=== PATIENT | male | born 1945 | race Caucasian/White ===

== ENCOUNTER 2017-01-30 12:09 | Day surgery (SDC) | payer OTHER ==
[~2017-01-30] VITALS: Ht 160 cm; Wt 75.0 kg
[~2017-01-30 12:09] MED LIST: ACTOS15 MG PO; ALFUZOSIN HCL10 MG PO; ASPIRIN81 M1 PO; ASPIRIN81 M2 PO; DILTIAZEM 24HR180 MG PO; IMDUR30 MG PO; LINZESS145 MCG PO; LORATADINE10 M2 PO; MESTINON60 MG PO; METFORMIN HCL1000 MG PO; MIRALAX17 GM PO; ONE DAILY TABL1 EAC1 PO; PRAVASTATIN SOD10 MG PO; PROTONIX40 MG PO; PYRIDOSTIGMINE60 MG PO; TELMISARTAN20 MG PO; TRULICITY0.75 MG/0. SC; VENTOLIN HFA18 GM IH; XALATAN 0.50 DROP/2. BOTH EYES; XENICAL120 MG PO; ZESTRIL,PRINIVIL5 MG PO
[2017-01-30 13:30] LABS: POINT-OF-CARE METER ID UU13113696; POINT-OF-CARE USER ID HMLCJM07
== END 2017-01-30 15:40 | disposition home or self-care (01) ==
LOC: CATH 12:09
PROVIDERS: Internal Medicine Cardiovascular Disease
DX: Z45.010 Encounter for checking and testing of cardiac pacemaker pulse generator [battery] (principal); I49.5 Sick sinus syndrome; I25.10 Atherosclerotic heart disease of native coronary artery without angina pectoris; I70.213 Atherosclerosis of native arteries of extremities with intermittent claudication, bilateral legs; E78.5 Hyperlipidemia, unspecified; E11.9 Type 2 diabetes mellitus without complications; G70.00 Myasthenia gravis without (acute) exacerbation; I27.20 Pulmonary hypertension, unspecified; Z79.82 Long term (current) use of aspirin; Z79.84 Long term (current) use of oral hypoglycemic drugs
CPT/HCPCS: 82948; C1785; J0690; J1200; J2250; J3010; S0020